=== PATIENT | male | born 1965 | race Two or more races ===

== ENCOUNTER 2018-02-24 14:49 | Outpatient (CLI) | payer OTHER ==
[~2018-02-24] VITALS: Ht 170.2 cm; Wt 90.7 kg
[2018-02-25] MEDS ORDERED: SWIM EAR DRO29.57 ML OTIC (13:54)
== END 2018-02-24 15:10 | disposition home or self-care (01) ==
LOC: OFIC 805 14:49
DX: H61.23 Impacted cerumen, bilateral (principal); H90.3 Sensorineural hearing loss, bilateral

== ENCOUNTER 2018-02-25 10:40 | Outpatient (CLI) | payer OTHER ==
[~2018-02-25] VITALS: Ht 170.2 cm; Wt 90.7 kg
[2018-02-25] MEDS ORDERED: SWIM EAR DRO29.57 ML OTIC (13:54)
== END 2018-02-25 11:00 | disposition home or self-care (01) ==
LOC: OFIC 805 10:40
DX: J31.0 Chronic rhinitis (principal); H61.22 Impacted cerumen, left ear

== ENCOUNTER 2019-03-04 08:05 | Outpatient (CLI) | payer OTHER ==
[~2019-03-04 08:05] MED LIST: SWIM EAR DRO29.57 ML OTIC
== END 2019-03-04 08:20 | disposition home or self-care (01) ==
LOC: OFIC 805 08:05
DX: H90.3 Sensorineural hearing loss, bilateral (principal); J30.89 Other allergic rhinitis; H61.22 Impacted cerumen, left ear

== ENCOUNTER 2021-07-26 08:00 | Outpatient (CLI) | payer OTHER | END 2021-07-26 08:30 | disposition home or self-care (01) | LOC: PPH VACUNA 08:00 | PROVIDERS: ATTEND Emergency Medicine Pediatric Emergency Medicine | DX: Z23 Encounter for immunization (principal) ==

== ENCOUNTER 2022-01-21 10:47 | Outpatient (CLI) | payer OTHER | END 2022-01-21 10:54 | disposition home or self-care (01) | LOC: RAD 10:47 | PROVIDERS: ATTEND Internal Medicine Cardiovascular Disease | DX: R10.9 Unspecified abdominal pain (principal) ==

== ENCOUNTER 2022-01-23 12:16 | Outpatient (CLI) | payer OTHER | END 2022-01-23 13:00 | disposition home or self-care (01) | LOC: TOM 12:16 | PROVIDERS: ATTEND Urology | DX: R31.0 Gross hematuria (principal) ==

== ENCOUNTER 2022-02-07 16:49 | Outpatient (CLI) | payer OTHER | END 2022-02-07 16:57 | disposition home or self-care (01) | LOC: LAB 16:49 | PROVIDERS: ATTEND Urology | DX: N30.00 Acute cystitis without hematuria (principal) ==

== ENCOUNTER 2022-08-28 14:17 | Outpatient (CLI) | payer OTHER | END 2022-08-28 14:27 | disposition home or self-care (01) | LOC: PPH VACUNA 14:17 | PROVIDERS: ATTEND Emergency Medicine Pediatric Emergency Medicine | DX: Z23 Encounter for immunization (principal) ==